=== PATIENT | male | born 1955 | race Caucasian/White ===

== ENCOUNTER 2017-11-17 10:16 | Emergency (ER) | payer BC ==
[~2017-11-17] VITALS: Ht 170.2 cm; Wt 100.0 kg
[~2017-11-17 10:16] MED LIST: AUGM875 PO; Z.0.NO CURRENT MEDS
[2017-11-17 10:19] VITALS: BP 137/75; PULSE 90; RESP 14; TEMP 98.4; O2SAT 98
--- NOTE | 2017-11-17 12:21 | PD ---
HPI Chief Complaint: Cold / Flu Symptoms Time Seen by Provider: 12:02 Travel History International Travel<30 days: No Contact w/Intl Traveler<30days: No Traveled to known affect area: No History of Present Illness HPI 62-year-old male complaining of persistent cough, sore throat, body ache, fever. Patient states that his symptoms started about 3 weeks ago. Patient with seen at a local urgent care center on November 07. Patient with given prescription for amoxicillin, prednisone and albuterol inhaler. Patient states that his symptoms persist despite taking the medications. Patient was seen again at urgent care center on November 13. Patient with advised to stop amoxicillin, and given prescription for doxycycline, Tessalon Perles and prednisone. Patient states that he had persistent sore throat, productive cough , body ache in fever despite taking the medications. Patient denies any headache. Patient denies any neck pain. Patient states that he has body ache with coughing. Patient denies abdominal pain. Patient denies any nausea vomiting diarrhea. PFSH Past Medical History Cancer: Yes (SKIN CANCER) Cardiovascular Problems: No Diabetes: No Glaucoma: No Hepatitis: No Hiatal Hernia: No Hypertension: No Respiratory: No Thyroid Disease: No Past Surgical History Abdominal Surgery: No Cardiac Surgery: No Ear Surgery: No Endocrine Surgery: No Eye Surgery: No Genitourinary Surgery: No Gynecologic Surgery: No Neurologic Surgery: No Oral Surgery: No Thoracic Surgery: No Other Surgery: Yes Social History Alcohol Use: Yes (A FEW BEERS) Tobacco Use: No Substance Use: No Allergies-Medications (Allergen,Severity, Reaction): Coded Allergies: No Known Allergies (Verified Adverse Reaction, Unknown, 11/17/17) Reported Meds & Prescriptions Reported Meds & Active Scripts Active Augmentin (Amoxicillin/Clavulanate Potassium) 875 Mg Tab 875 Mg PO BID Reported No Current Meds (Miscellaneous Medication) Misc Review of Systems General / Constitutional: No: Fever Eyes: No: Visual changes HENT: Positive: Sore Throat, No: Headaches Cardiovascular: No: Chest Pain or Discomfort Respiratory: Positive: Cough, No: Shortness of Breath Gastrointestinal: No: Abdominal Pain Genitourinary: No: Dysuria Musculoskeletal: No: Pain Skin: No Rash Neurologic: No: Weakness Psychiatric: No: Depression Endocrine: No: Polydipsia Hematologic/Lymphatic: No: Easy Bruising Physical Exam Narrative GENERAL: Well-nourished, well-developed patient. SKIN: Focused skin assessment warm/dry. HEAD: Normocephalic. EYES: No scleral icterus. No injection or drainage. NECK: Supple, trachea midline. No JVD or lymphadenopathy. CARDIOVASCULAR: Regular rate and rhythm without murmurs, gallops, or rubs. RESPIRATORY: Breath sounds equal bilaterally. No accessory muscle use. Patient has mild expiratory wheezes bilaterally. Few rhonchi at the right base. GASTROINTESTINAL: Abdomen soft, non-tender, nondistended. MUSCULOSKELETAL: No cyanosis, or edema. BACK: Nontender without obvious deformity. No CVA tenderness. Neurologic exam normal. Data Data Last Documented VS Vital Signs Date Time Temp Pulse Resp B/P (MAP) Pulse Ox O2 Delivery O2 Flow Rate FiO2 11/17/17 11:54 80 18 Room Air 11/17/17 10:19 98.4 137/75 (95) 98 Orders Orders Influenzae A/B Antigen (11/17/17 12:13) Chest, Single Ap (11/17/17 12:13) Albuterol-Ipratropium Neb (Duoneb Neb) (11/17/17 12:30) [facility] Medical Decision Making Medical Screen Exam Complete: Yes Emergency Medical Condition: Yes Interpretation(s) 1307 p.m. Chest x-ray shows no acute consolidation. Influenza A B antigen negative. Differential Diagnosis Differential diagnosis including pharyngitis, bronchitis, pneumonia. Narrative Course 62-year-old male with persistent sore throat, productive cough. Patient's on amoxicillin then doxycycline. Albuterol with Atrovent unit dose treatment 1. Diagnosis Primary Impression: Bronchitis Additional Impression: Reactive airway disease Qualified Codes: J45.40 - Moderate persistent asthma, uncomplicated Patient Instructions: General Instructions Additional Instructions: Albuterol treatment as needed. Stop doxycycline. Stop amoxicillin. Levaquin as directed. Follow-up with personal physician. Return if worse. Med/Other Pt SpecificInfo: Prescription(s) given Scripts Levofloxacin (Levaquin) 750 Mg Tablet 750 MG PO DAILY for Infection, #7 TAB 0 Refills Prov: Mario Tee MD 11/17/17 Ipratropium Neb (Ipratropium Neb) 0.5 Mg/2.5 Ml Amp 0.5 MG NEB Q4HR NEB for Breathing Treatment, #60 NEBULE 0 Refills Prov: Mario Tee MD 11/17/17 Albuterol Neb (Albuterol Neb) 2.5 Mg/3 Ml Neb 2.5 MG NEB Q4HR NEB for Breathing Treatment, #60 NEBULE 0 Refills While awake Prov: Mario Tee MD 11/17/17 Nebulizer (Nebulizer) 1 Mis Mis EA INH Q4-6H for Breathing Treatment, #1 0 Refills Every 4-6 hours as needed for shortness of breath Prov: Mario Tee MD 11/17/17 Disposition: 01 DISCHARGE HOME Condition: Stable Mario Tee MD Nov 17, 2017 12:21
[2017-11-17] MEDS ORDERED: RESP: ALBUTEROL 2.5 MG/IPRATROPIUM 0.5 MG NEB (SCH) INH ONE (12:30)
--- NOTE | 2017-11-17 13:04 | RADRPT ---
EXAM DATE/TIME: 11/17/2017 12:49 [facility] COMPARISON: No previous studies available for comparison. INDICATIONS : Cough, wheezing, shortness of breath. MEDICAL HISTORY : None. SURGICAL HISTORY : None. ENCOUNTER: Initial ACUITY: 3 days PAIN SCORE: 0/10 LOCATION: Bilateral chest FINDINGS: A single view of the chest demonstrates the lungs to be symmetrically aerated without evidence of mas s, infiltrate or effusion. The cardiomediastinal contours are unremarkable. Osseous structures are intact. CONCLUSION: No acute disease. Mikhail Baugh MD on November 17, 2017 at 13:01 Board Certified Radiologist. This report was verified electronically.
[2017-11-17] MEDS ORDERED: IPRA0.02 NEB (13:25)
[2017-11-17] MEDS ORDERED: NEBULIZER1 MI1 INH (13:25)
[2017-11-17] MEDS ORDERED: ALBU0.08 NEB (13:25)
[2017-11-17] MEDS ORDERED: LEVA750T9 PO (13:26)
== END 2017-11-17 13:48 | disposition home or self-care (01) ==
LOC: NEPD 10:16
DX: J40 Bronchitis, not specified as acute or chronic (principal); J45.40 Moderate persistent asthma, uncomplicated; Z85.828 Personal history of other malignant neoplasm of skin
CPT/HCPCS: 71045; 87804; 94664; 99284

== ENCOUNTER 2017-11-24 10:44 | Emergency (ER) | payer BC ==
[~2017-11-24] VITALS: Ht 172.7 cm; Wt 100.0 kg
[~2017-11-24 10:44] MED LIST changes: +ALBU0.08 NEB; +IPRA0.02 NEB; +LEVA750T9 PO; +NEBULIZER1 MI1 INH
[2017-11-24] MEDS ORDERED: IOHEXOL 350 MG/ML 10 ML VIAL (for RAD DIAG) IVCONTRAST ONE (10:45)
[2017-11-24 10:46] VITALS: BP 143/91; PULSE 84; RESP 16; TEMP 98; O2SAT 96
--- NOTE | 2017-11-24 11:40 | PD ---
HPI Chief Complaint: Cold / Flu Symptoms Time Seen by Provider: 11:20 Travel History International Travel<30 days: No Contact w/Intl Traveler<30days: No Traveled to known affect area: No History of Present Illness HPI 62-year-old male complains of persistent sore throat and persistent coughing. Patient states that the symptoms started about a month ago. Patient was seen at local urgent care center on November 07 and was given prescription for amoxicillin, prednisone and albuterol inhaler. Patient was seen at urgent care center again on November 13 and given prescription for doxycycline Tessalon and prednisone. Patient states that he has persistent symptoms despite taking the medication. Patient was seen in emergency room 7 days ago. Influenza A B antigen was negative. Chest x-ray shows no acute consolidation. Patient was given albuterol with Atrovent unit dose treatments and prescription for Levaquin , albuterol and Atrovent. Patient took the medication as directed. Patient states that he had persistent sore throat and coughing despite the medication. Patient complains of body ache also. Patient states that he has occasional nausea vomiting. Patient states he has low-grade fever at home. Patient states the cough is persistent and productive. Patient denies any chest pain or shortness of breath. PFSH Past Medical History Cancer: Yes (SKIN CANCER) Cardiovascular Problems: No Diabetes: No Glaucoma: No Hepatitis: No Hiatal Hernia: No Hypertension: No Respiratory: No Thyroid Disease: No Tetanus Vaccination: Unknown Influenza Vaccination: No Past Surgical History Abdominal Surgery: No Cardiac Surgery: No Ear Surgery: No Endocrine Surgery: No Eye Surgery: No Genitourinary Surgery: No Gynecologic Surgery: No Neurologic Surgery: No Oral Surgery: No Thoracic Surgery: No Other Surgery: Yes Social History Alcohol Use: Yes (A FEW BEERS) Tobacco Use: No Substance Use: No Allergies-Medications (Allergen,Severity, Reaction): Coded Allergies: No Known Allergies (Verified Adverse Reaction, Unknown, 11/24/17) Reported Meds & Prescriptions Reported Meds & Active Scripts Active Levaquin (Levofloxacin) 750 Mg Tablet 750 Mg PO DAILY Ipratropium Neb (Ipratropium [place]) 0.5 Mg/2.5 Ml Amp 0.5 Mg NEB Q4HR NEB Albuterol Neb (Albuterol Sulfate) 2.5 Mg/3 Ml Neb 2.5 Mg NEB Q4HR NEB While awake Nebulizer 1 Mis Mis Ea INH Q4-6H Every 4-6 hours as needed for shortness of breath Review of Systems General / Constitutional: No: Fever Eyes: No: Visual changes HENT: Positive: Sore Throat, No: Headaches Cardiovascular: No: Chest Pain or Discomfort Respiratory: Positive: Cough, No: Shortness of Breath Gastrointestinal: No: Abdominal Pain Genitourinary: No: Dysuria Musculoskeletal: No: Pain Skin: No Rash Neurologic: No: Weakness Psychiatric: No: Depression Endocrine: No: Polydipsia Hematologic/Lymphatic: No: Easy Bruising Physical Exam Narrative GENERAL: Well-nourished, well-developed patient. SKIN: Focused skin assessment warm/dry. HEAD: Normocephalic. EYES: No scleral icterus. No injection or drainage. TM: Clear. Throat: Mild erythematous and mild edema. NECK: Supple, trachea midline. No JVD or lymphadenopathy. CARDIOVASCULAR: Regular rate and rhythm without murmurs, gallops, or rubs. RESPIRATORY: Breath sounds equal bilaterally. No accessory muscle use. GASTROINTESTINAL: Abdomen soft, non-tender, nondistended. MUSCULOSKELETAL: No cyanosis, or edema. BACK: Nontender without obvious deformity. No CVA tenderness. Neurologic exam normal. Data Data Last Documented VS Vital Signs Date Time Temp Pulse Resp B/P (MAP) Pulse Ox O2 Delivery O2 Flow Rate FiO2 11/24/17 11:25 20 Room Air 11/24/17 10:46 98.0 84 143/91 (108) 96 Orders Orders Complete Blood Count With Diff (11/24/17 11:32) Comprehensive Metabolic Panel (11/24/17 11:32) Influenzae A/B Antigen (11/24/17 11:32) Chest, Single Ap (11/24/17 11:32) Iv Access Insert/Monitor (11/24/17 11:32) Ecg Monitoring (11/24/17 11:32) Oximetry (11/24/17 11:32) Sodium Chlor 0.9% 1000 Ml Inj (Ns 1000 M (11/24/17 11:45) Dexamethasone Inj (Decadron Inj) (11/24/17 11:45) Ct Soft Tiss Neck W Iv Cont (11/24/17 ) Iohexol 350 Inj (Omnipaque 350 Inj) (11/24/17 10:45) Labs Laboratory Tests Test 11/24/17 12:03 White Blood Count 6.8 TH/MM3 Red Blood Count 4.57 MIL/MM3 Hemoglobin 14.8 GM/DL Hematocrit 41.6 % Mean Corpuscular Volume 90.9 FL Mean Corpuscular Hemoglobin 32.3 PG Mean Corpuscular Hemoglobin Concent 35.6 % Red Cell Distribution Width 12.9 % Platelet Count 155 TH/MM3 Mean Platelet Volume 8.8 FL Neutrophils (%) (Auto) 55.5 % Lymphocytes (%) (Auto) 23.0 % Monocytes (%) (Auto) 9.3 % Eosinophils (%) (Auto) 11.6 % Basophils (%) (Auto) 0.6 % Neutrophils # (Auto) 3.8 TH/MM3 Lymphocytes # (Auto) 1.6 TH/MM3 Monocytes # (Auto) 0.6 TH/MM3 Eosinophils # (Auto) 0.8 TH/MM3 Basophils # (Auto) 0.0 TH/MM3 CBC Comment DIFF FINAL Differential Comment Blood Urea Nitrogen 12 MG/DL Creatinine 0.92 MG/DL Random Glucose 108 MG/DL Total Protein 7.3 GM/DL Albumin 3.9 GM/DL Calcium Level 9.1 MG/DL Alkaline Phosphatase 59 U/L Aspartate Amino Transf (AST/SGOT) 29 U/L Alanine Aminotransferase (ALT/SGPT) 39 U/L Total Bilirubin 0.4 MG/DL Sodium Level 138 MEQ/L Potassium Level 4.4 MEQ/L Chloride Level 106 MEQ/L Carbon Dioxide Level 27.4 MEQ/L Anion Gap 5 MEQ/L Estimat Glomerular Filtration Rate 84 ML/MIN MDM Medical Decision Making Medical Screen Exam Complete: Yes Emergency Medical Condition: Yes Interpretation(s) Last Impressions Chest X-Ray 11/24/17 1132 Signed Impressions: Service Date/Time: Friday, November 24, 2017 12:01 - CONCLUSION: No acute cardiopulmonary abnormality is identified. Stanley Clark MD Neck CT 11/24/17 0000 Signed Impressions: Service Date/Time: Friday, November 24, 2017 13:45 - CONCLUSION: 1. Pansinusitis. 2. No neck abscess. Modesto Solis MD 1434 PM. CBC within normal limit. CMP within normal limit. Influenza AB antigen negative. Differential Diagnosis Differential diagnosis including pharyngitis, bronchitis, pneumonia, viral syndrome. Narrative Course 62-year-old male with persistent sore throat and productive cough. Patient's on amoxicillin, doxycycline, Levaquin recent past. Diagnosis Primary Impression: Sinusitis Qualified Codes: J01.40 - Acute pansinusitis, unspecified Additional Impressions: Bronchitis Viral syndrome Patient Instructions: General Instructions Additional Instructions: Take medications as directed. Follow-up with personal physician. Return if worse. Med/Other Pt SpecificInfo: Prescription(s) given Scripts Ranitidine (Zantac) 300 Mg Tab 300 MG PO DAILY, #21 TAB 0 Refills Prov: Mario Tee MD 11/24/17 Prednisone (Prednisone) 20 Mg Tab 20 MG PO BID, #10 TAB 0 Refills Prov: Mario Tee MD 11/24/17 Amoxicillin-Clavulanate (Augmentin) 875-125 Mg Tab 1 TAB PO BID for Infection, #42 TAB 0 Refills Prov: Mario Tee MD 11/24/17 Disposition: 01 DISCHARGE HOME Condition: Stable Mario Tee MD Nov 24, 2017 11:40
[2017-11-24] MEDS ORDERED: DEXAMETHASONE SOD PHOS 4 MG/ML VIAL IV PUSH ONE (11:45)
[2017-11-24] MEDS ORDERED: SODIUM CHLOR 0.9% 1000 ML INJ 1,000 ML IV ONE (11:45)
[2017-11-24 12:15] LABS: AUTOMATED NEUTROPHIL # 3.8 TH/MM3 (1.8-7.7); BASOPHIL % 0.6 % (0.0-2.0); EOSINOPHIL # 0.8 TH/MM3 (0-0.4); EOSINOPHIL % 11.6 % (0.0-4.0); HEMATOCRIT 41.6 % (39.0-51.0); HEMOGLOBIN 14.8 GM/DL (13.0-17.0); LYMPHOCYTE # 1.6 TH/MM3 (1.0-4.8); MEAN CELL VOLUME 90.9 FL (80.0-100.0); MEAN CORPUSCULAR HEMOGLOBIN 32.3 PG (27.0-34.0); MEAN CORPUSCULAR HGB CONC 35.6 % (32.0-36.0); MEAN PLATELET VOLUME 8.8 FL (7.0-11.0); MONO % 9.3 % (0.0-8.0); MONOCYTE # 0.6 TH/MM3 (0-0.9); NEUT % 55.5 % (16.0-70.0); PLATELET COUNT 155 TH/MM3 (150-450); RED BLOOD COUNT 4.57 MIL/MM3 (4.50-5.90); RED CELL DISTRIBUTION WIDTH 12.9 % (11.6-17.2); WHITE BLOOD COUNT 6.8 TH/MM3 (4.0-11.0)
[2017-11-24 12:30] LABS: ALT (GPT) 39 U/L (12-78)
[2017-11-24 12:33] LABS: ALKALINE PHOSPHATASE 59 U/L (45-117); TOTAL BILIRUBIN ADULT 0.4 MG/DL (0.2-1.0); TOTAL PROTEIN 7.3 GM/DL (6.4-8.2)
--- NOTE | 2017-11-24 12:33 | RADRPT ---
EXAM DATE/TIME: 11/24/2017 12:01 [facility] COMPARISON: CHEST SINGLE AP, November 17, 2017, 12:49. INDICATIONS : Chest pain and short of breath. MEDICAL HISTORY : None. SURGICAL HISTORY : None. ENCOUNTER: Initial ACUITY: 1 week PAIN SCORE: 0/10 LOCATION: Bilateral chest FINDINGS: Portable AP view of the chest demonstrates a normal-sized cardiac silhouette. The lungs demonstrate n o definite effusion, consolidation, or pneumothorax. The bones and soft tissues demonstrate no acute finding. CONCLUSION: No acute cardiopulmonary abnormality is identified. Stanley Clark MD on November 24, 2017 at 12:30 Board Certified Radiologist. This report was verified electronically.
[2017-11-24 12:34] LABS: ALBUMIN 3.9 GM/DL (3.4-5.0); AST (GOT) 29 U/L (15-37); BICARBONATE 27.4 MEQ/L (21.0-32.0); BLOOD UREA NITROGEN 12 MG/DL (7-18); CALCIUM 9.1 MG/DL (8.5-10.1); CHLORIDE 106 MEQ/L (98-107); CREATININE 0.92 MG/DL (0.60-1.30); GLOMERULAR FILTRATION RATE 84 ML/MIN (>89); GLUCOSE,RANDOM 108 MG/DL (74-106); SODIUM (NA) 138 MEQ/L (136-145)
--- NOTE | 2017-11-24 14:25 | RADRPT ---
EXAM DATE/TIME: 11/24/2017 13:45 [facility] COMPARISON: No previous studies available for comparison. INDICATIONS : Cough, congestion, recent diagnosis with bronchitis. Patient completed antibiotics, symptoms persist. Evaluate for abscess IV CONTRAST: 72 cc Omnipaque 350 (iohexol) IV RADIATION DOSE: 17.24 CTDIvol (mGy) MEDICAL HISTORY : Skin cancer SURGICAL HISTORY : None. ENCOUNTER: Initial ACUITY: 1 day PAIN SCALE: 8/10 LOCATION: Bilateral neck TECHNIQUE: Volumetric scanning of the neck was performed. Using automated exposure control and adjustment of th e mA and/or kV according to patient size, radiation dose was kept as low as reasonably achievable to obtain optimal diagnostic quality images. DICOM format image data is available electronically for r eview and comparison. FINDINGS: NASOPHARYNX: The nasopharyngeal airway has a normal configuration. No mucosal thickening or mass is seen. OROPHARYNX: The intrinsic muscles of the tongue are symmetric. The tonsillar pillars are intact. The prevertebr al soft tissues are not thickened. LARYNX: The supraglottic, glottic, and infraglottic structures are intact. PARAPHARYNGEAL: The parapharyngeal space is intact. SALIVARY GLANDS: The parotid and submandibular glands are intact. LYMPH NODES: No enlarged or necrotic-appearing nodes. THYROID: Homogeneous enhancement without evidence of nodule. BONES: Diffuse opacification of the visualized portions of the ethmoid, maxillary and left sphenoid sinus.. CONCLUSION: 1. Pansinusitis. 2. No neck abscess. Modesto Solis MD on November 24, 2017 at 14:20 Board Certified Radiologist. This report was verified electronically.
[2017-11-24] MEDS ORDERED: ZANT300T PO (14:40)
[2017-11-24] MEDS ORDERED: PRED20 PO (14:40)
[2017-11-24] MEDS ORDERED: AUGM875T3 PO (14:40)
== END 2017-11-24 15:17 | disposition home or self-care (01) ==
LOC: NEPD 10:44
DX: J01.40 Acute pansinusitis, unspecified (principal); J40 Bronchitis, not specified as acute or chronic; B34.9 Viral infection, unspecified
CPT/HCPCS: 70491; 71045; 80053; 85025; 87804; 96361; 96374; 99285; J1100; J7030; Q9967